=== PATIENT | male | born 1995 | race Caucasian/White ===

== ENCOUNTER 2018-05-17 22:17 | Emergency (ER) | payer BC ==
[~2018-05-17] VITALS: Ht 180.3 cm; Wt 100.7 kg
[2018-05-17 22:19] VITALS: BP 164/85; PULSE 75; TEMP 36.6; O2SAT 97; Ht 180.3 cm; Wt 100.7 kg
--- NOTE | 2018-05-17 22:42 | EMERGENCY ROOM VISIT NOTE ---
History Report prepared by Shawn: Leyda Beltran Under the Supervision of: Dr. Yung Calderon M.D. 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 He states he was working at the [employer] and was taking the tarp off the field when he stepped on 2nd base and twisted his ankle. He was brought via EMS and he received ice and ibuprofen which he states slightly alleviated his pain. Source of History: patient Onset: around 1 hour warranty administrator Position: ankle (right) Timing: other (after twisting his right ankle) Modifying Factors (Relieving): ibuprofen, ice Review of Systems See HPI for pertinent positives and negatives. A total of six systems were reviewed and were otherwise negative. Past Medical & Surgical Surgical Problems: (1) History of appendectomy Family History No pertinent family history Social History Smoking Status: Never Smoker Alcohol Use: occasionally Marital Status: single Current/Historical Medications No Active Prescriptions or Reported Meds Allergies Coded Allergies: Amoxicillin (Verified Allergy, Unknown, unknown, 05/17/18) Cefdinir (Verified Allergy, Unknown, rash, 05/17/18) Sodium Benzoate (Verified Allergy, Unknown, rash, 05/17/18) Physical Exam Vital Signs Date Time Temp Pulse Resp B/P (MAP) Pulse Ox O2 Delivery O2 Flow Rate FiO2 05/17/18 22:19 36.6 75 18 164/85 97 Room Air Physical Exam GENERAL: Awake, alert, well-appearing, NAD HENT: Normocephalic, atraumatic. EYES: Normal conjunctiva. Sclera non-icteric. PERRL. No anisocoria. NECK: Supple. No nuchal rigidity. FROM. RESPIRATORY: CTAB, no rhonchi, wheezing, crackles CARDIAC: RRR, no MRG ABDOMEN: Soft, NTND, BS+ MSK: No chest wall TTP, no LE edema. Pain to the proximal dorsal aspect of the foot and anterior portion of the ankle. No medical or lateral malleolar TTP. No pain with squeeze of the mid butler NEURO: GCS 15, CN 2-12 intact, moves all 4s on command. Neuro intact distally. SKIN: No rash or jaundice noted. Medical Decision & Procedures ER Provider Diagnostic Interpretation: Radiology results as stated below per my review and radiologist interpretation: R ANKLE MIN 3 VIEWS ROUTINE CLINICAL HISTORY: s/p rolling ankle trauma. Pain. COMPARISON: None. DISCUSSION: The bones and joint spaces appear intact. There is no evidence of fracture, dislocation or bony disease. There is no evidence for soft tissue swelling. IMPRESSION: Negative study. The above report was generated using voice recognition software. It may contain grammatical, syntax or spelling errors. Electronically signed by: Silviano Del Toro M.D. 05/17/2018 10:45 PM ED Course 2232: The patient was evaluated in room C3. A complete history and physical exam was performed. 2324: I reevaluated the patient. Discussed results and discharge instructions: He verbalized understanding and agreement. The patient is ready for discharge. Medical Decision The patient is a 23 year old white male with no significant past medical history who presents to the ED with a cc of right ankle pain beginning around 1 hour warranty administrator. Nursing notes reviewed. Ancillary studies and prior records reviewed. Differential diagnosis: Etiologies such as fracture, dislocation, neurovascular compromise, compartment syndrome, soft tissue injury, as well as others were entertained. Patient was seen and evaluated the bedside. Patient was complaining some right ankle discomfort. Patient is neurovascular intact. Patient did have a plain film completed. Patient's plain film was unremarkable. Patient was placed in an Wilbur wrap and given crutches. He was told to follow-up with [facility] orthopedics or S that the patient has had persistent difficulty with walking or painful ambulation. Patient was given strict follow-up, discharge, and return precautions. All questions were answered. Patient was deemed suitable for outpatient follow-up at this time. Patient agreed with the plan of care and was safely discharged home. Medication Reconcilliation Current Medication List: was personally reviewed by me Blood Pressure Screening Patient's blood pressure: Elevated blood pressure Blood pressure disposition: Elevated BP felt to be situational Impression Primary Impression: Ankle sprain Scribe Attestation The scribe's documentation has been prepared under my direction and personally reviewed by me in its entirety. I confirm that the note above accurately reflects all work, treatment, procedures, and medical decision making performed by me. Departure Information Dispostion Home / Self-Care Prescriptions No Active Prescriptions or Reported Meds Referrals No Doctor, Assigned (PCP) [facility] Orthopaedics Forms HOME CARE DOCUMENTATION FORM, IMPORTANT VISIT INFORMATION Patient Instructions ED RICE, ED Sprain Ankle, [facility] Additional Instructions Please return to the emergency department if you have worsening or recurrent symptoms not amenable to at-home treatment. Please call for a follow-up appointment with her primary care physician. Please take your medications as prescribed. If you have other concerns and/or complaints please feel free to also call your primary care physician's office or return the ED for further evaluation, management, and treatment. You may take 600 mg Ibuprofen every 6 hours as needed for pain/fever with food unless told by your physician not to take NSAIDs. You may take tylenol 650 mg every 6 hours as needed for pain/fever unless told by your physician to not take it or have liver problems. You may take motrin and tylenol separately or at the same time. Take your medications as prescribed. You have been examined and treated today on an emergency basis only. This is not a substitute for, or an effort to provide, complete comprehensive medical care. It is impossible to recognize and treat all injuries or illnesses in a single emergency department visit. It is therefore important that you follow up closely with [facility], your PCP, and/or your specialist(s). Call as soon as possible for an appointment. Thank you for your time and consideration. I look forward to speaking with you again soon. Please don't hesitate to call us if you have any questions. Problem Qualifiers Primary Impression: Ankle sprain Encounter type: initial encounter Involved ligament of ankle: anterior talofibular ligament Laterality: right Qualified Codes: S93.491A - Sprain of other ligament of right ankle, initial encounter
--- NOTE | 2018-05-17 22:46 | DIAGNOSTIC IMAGING REPORT ---
R ANKLE MIN 3 VIEWS ROUTINE CLINICAL HISTORY: s/p rolling ankle trauma. Pain. COMPARISON: None. DISCUSSION: The bones and joint spaces appear intact. There is no evidence of fracture, dislocation or bony disease. There is no evidence for soft tissue swelling. IMPRESSION: Negative study. The above report was generated using voice recognition software. It may contain grammatical, syntax or spelling errors. Electronically signed by: Silviano Del Toro M.D. 05/17/2018 10:45 PM Dictated Date/Time: 05/17/2018 10:45 PM
== END 2018-05-17 23:31 | disposition home or self-care (01) ==
LOC: C.EDB 22:19 → C.EDC 23:31
DX: S93.491A Sprain of other ligament of right ankle, initial encounter (principal); X50.1XXA Overexertion from prolonged static or awkward postures, initial encounter; Y92.89 Other specified places as the place of occurrence of the external cause; Z88.1 Allergy status to other antibiotic agents; Z88.8 Allergy status to other drugs, medicaments and biological substances